=== PATIENT | male | born 1945 | race Asian ===

== ENCOUNTER 2017-01-12 09:36 | Observation (INO) | payer MEDICARE ==
[~2017-01-12] VITALS: Ht 175.3 cm; Wt 65.8 kg
[2017-01-12] MEDS ORDERED: NITROGLYCERIN SINGLE TAB 0.4 MG SL ONE (10:20)
[2017-01-12] MEDS ORDERED: ASPIRIN 81 MG TABLET CHEW ONE (10:20)
[2017-01-12 10:30] LABS: BLOOD UREA NITROGEN 9 mg/dL (7-18)
[2017-01-12] MEDS ORDERED: ASPIRIN 81 MG TABLET CHEW PO ONE (10:30)
[2017-01-12] MEDS ORDERED: SODIUM CHLORIDE FLUSH 10ML SYR IVF ONE (10:30)
[2017-01-12] MEDS: NITROGLYCERIN SINGLE TAB 0.4 MG SL PRN ×2 (10:37→11:15)
[2017-01-12] MEDS ORDERED: AMLO10TA2 PO (11:25)
[2017-01-12] MEDS ORDERED: SODIUM CHLORIDE FLUSH 10ML SYR IVF PRN (11:30)
[2017-01-12] MEDS ORDERED: ACETAMINOPHEN 325 MG TABLET PO PRN (12:30)
[2017-01-12] MEDS ORDERED: hydrALAzine 20 MG/ML, 1ML IVPush PRN (12:30)
[2017-01-12] MEDS ORDERED: DOCUSATE 100 MG CAPSULE PO PRN (12:30)
[2017-01-12] MEDS ORDERED: morphine SULFATE 10 MG/ML, 1ML IVPush PRN (12:30)
[2017-01-12] MEDS ORDERED: HYDROcodone/APAP 5/325 TABLET PO PRN (12:30)
[2017-01-12] MEDS ORDERED: ONDANSETRON 2MG/ML, 2ML IVPush PRN (12:30)
[2017-01-12] MEDS ORDERED: LORazepam 1MG TABLET PO PRN (12:30)
[2017-01-12] MEDS ORDERED: NITROGLYCERIN 0.4 MG BOTTLE (25 TABS) SL PRN (12:30)
[2017-01-12] MEDS ORDERED: POTASSIUM CHLORIDE 20 MEQ TAB.ER.PRT PO ONE (13:00)
[2017-01-12 15:30] VITALS: BP 162/90
[2017-01-12] MEDS ORDERED: ENOXAPARIN 40 MG/0.4 ML SQ SCH (15:30)
[2017-01-12 16:05] LABS: IS PT STATUS REG ER OR PRE ER? NO
[2017-01-12 20:03] VITALS: BP 147/80
[2017-01-12 21:24] LABS: IS PT STATUS REG ER OR PRE ER? NO
[2017-01-13 02:44] VITALS: BP 148/79
[2017-01-13] MEDS ORDERED: ASPIRIN 325 MG TABLET EC PO SCH (06:00)
[2017-01-13 07:42] VITALS: BP 157/78
[2017-01-13] MEDS ORDERED: REGADENOSON 0.4 MG/5 ML SYRINGE ONE (08:31)
[2017-01-13] MEDS ORDERED: AMLODIPINE 5 MG TABLET PO SCH (09:00)
[2017-01-13] MEDS ORDERED: OMEP-110 PO (12:21)
[2017-01-13] MEDS ORDERED: PNEUMOCOCCAL 23 VACCINE IM-VACC ONE (14:00)
== END 2017-01-13 13:42 | disposition home or self-care (01) ==
LOC: EDSEX 09:36 → ED 10:25 → EDIP 11:13 → INTOOBSV 11:13 → 5SO 15:10
PROVIDERS: ADMIT Internal Medicine; ATTEND Internal Medicine
DX: R07.2 Precordial pain (principal); I10 Essential (primary) hypertension; K21.9 Gastro-esophageal reflux disease without esophagitis; E87.6 Hypokalemia; I11.9 Hypertensive heart disease without heart failure; Z82.49 Family history of ischemic heart disease and other diseases of the circulatory system
CPT/HCPCS: 36415; 71010; 76700; 78452; 80048; 80061; 82040; 83036; 83735; 83880; 84100; 84439; 84443; 84484; 85025; 85610; 85730; 93005; 93017; 93306; 96372; 99285; A9502; C9898; G0378; J1650; J2785